=== PATIENT | male | born 1965 | race Hispanic/Latino ===

== ENCOUNTER 2021-02-03 07:12 | Emergency (ER) | payer BC ==
[~2021-02-03] VITALS: Ht 167.6 cm; Wt 79.4 kg
== END 2021-02-03 07:34 | disposition home or self-care (01) ==
LOC: ER 07:34
DX: R18.8 Other ascites (principal); R11.2 Nausea with vomiting, unspecified; K76.9 Liver disease, unspecified
CPT/HCPCS: 99282